=== PATIENT | female | born 1970 | race Caucasian/White ===

== ENCOUNTER 2019-12-25 11:13 | Emergency (ER) | payer MEDICAID ==
[~2019-12-25] VITALS: Ht 154.9 cm; Wt 78.0 kg
[~2019-12-25 11:13] MED LIST: ESOM20CA PO; TOPA25 PO
[2019-12-25 11:19] VITALS: BP 130/106
[2019-12-25] MEDS ORDERED: LIDOCAINE 1%/EPI 1:100,000 10 ML VIAL IJ ONE (12:30)
[2019-12-25] MEDS ORDERED: BACITRACIN ZINC OINT UDPKT TOP ONE (12:30)
[2019-12-25] MEDS ORDERED: CEFTRIAXONE 1 G PREMIX 50 ML IV ONE (12:30)
[2019-12-25] MEDS ORDERED: ACETAMINOPHEN 325MG TABLET PO ONE (13:00)
[2019-12-25 13:04] LABS: BASOPHILS % 1.2 % (0.0-2.0); EOSINOPHILS % 1.7 % (0.0-5.0); HEMOGLOBIN. 12.7 g/dL (12.0-16.0); LYMPHOCYTES % 12.9 % (20.0-50.0); MEAN CORPUSCULAR HEMOGLOBIN 29.4 pg (28.0-32.0); MEAN CORPUSCULAR VOLUME 88.2 fL (81.0-99.0); MEAN PLATELET VOLUME 8.2 fl (7.4-10.4); MONOCYTES % 8.2 % (2.0-8.0); PLATELET 367 x1000/uL (130-400); RED BLOOD CELL COUNT 4.31 mill/uL (4.2-5.4); RED CELL DISTRIBUTION WIDTH 15.2 % (11.6-14.6)
[2019-12-25 13:14] LABS: CHLORIDE 101 mEq/L (98-107)
== END 2019-12-25 13:44 | disposition home or self-care (01) ==
LOC: ER 11:13
DX: L02.413 Cutaneous abscess of right upper limb (principal); L03.113 Cellulitis of right upper limb; F32.9 Major depressive disorder, single episode, unspecified; Z98.51 Tubal ligation status
CPT/HCPCS: 36415; 80053; 85025; 96365; 99284; A4217; J0696; J3490; Z7610

== ENCOUNTER 2019-12-29 08:15 | Emergency (ER) | payer MEDICAID ==
[~2019-12-29] VITALS: Ht 154.9 cm; Wt 78.0 kg
[2019-12-29 08:25] VITALS: BP 120/64
== END 2019-12-29 09:15 | disposition home or self-care (01) ==
LOC: ER 08:15
DX: Z48.00 Encounter for change or removal of nonsurgical wound dressing (principal); L03.113 Cellulitis of right upper limb
CPT/HCPCS: 99282

== ENCOUNTER 2020-12-21 16:45 | Emergency (ER) | payer MEDICAID ==
[~2020-12-21] VITALS: Ht 165.1 cm; Wt 91.0 kg
[2020-12-21 16:48] VITALS: BP 134/87
[2020-12-21 18:24] LABS: BASOPHILS % 0.6 % (0.0-2.0); EOSINOPHILS % 3.1 % (0.0-5.0); HEMATOCRIT. 39.7 % (36.0-48.0); HEMOGLOBIN. 12.9 g/dL (12.0-16.0); LYMPHOCYTES % 24.1 % (20.0-50.0); MEAN CORPUSCULAR HEMOGLOBIN 28.5 pg (28.0-32.0); MEAN CORPUSCULAR VOLUME 87.7 fL (81.0-99.0); MEAN PLATELET VOLUME 8.4 fl (7.4-10.4); MONOCYTES % 8.5 % (2.0-8.0); NEUTROPHILS % 63.7 % (40.0-76.0); PLATELET 415 x1000/uL (130-400); RED BLOOD CELL COUNT 4.52 mill/uL (4.2-5.4); RED CELL DISTRIBUTION WIDTH 14.9 % (11.6-14.6)
[2020-12-21 18:29] LABS: CHLORIDE 104 mEq/L (98-107)
== END 2020-12-21 19:50 | disposition left against medical advice (07) ==
LOC: ER 16:45
DX: R10.9 Unspecified abdominal pain (principal); R06.02 Shortness of breath
CPT/HCPCS: 36415; 80053; 85025; 93005; 99284

== ENCOUNTER 2023-04-01 08:16 | Emergency (ER) | payer MEDICAID, OTHER ==
[~2023-04-01] VITALS: Ht 154.9 cm; Wt 95.0 kg
[2023-04-01 08:24] VITALS: BP 133/79; PULSE 93; RESP 18; TEMP 98.9; O2SAT 99
[2023-04-01 09:11] LABS: BASOPHILS % 0.3 % (0.0-2.0); EOSINOPHILS % 1.6 % (0.0-5.0); HEMATOCRIT. 36.6 % (36.0-48.0); HEMOGLOBIN. 12.2 g/dL (12.0-16.0); LYMPHOCYTES % 23.6 % (20.0-50.0); MEAN CORPUSCULAR HEMOGLOBIN 27.6 pg (28.0-32.0); MEAN CORPUSCULAR HGB CONC 33.4 g/dL (31.0-37.0); MEAN CORPUSCULAR VOLUME 82.4 fL (81.0-99.0); MEAN PLATELET VOLUME 8.4 fl (7.4-10.4); MONOCYTES % 6.9 % (2.0-8.0); NEUTROPHILS % 67.6 % (40.0-76.0); PLATELET 387 x1000/uL (130-400); RED BLOOD CELL COUNT 4.44 mill/uL (4.2-5.4); RED CELL DISTRIBUTION WIDTH 13.6 % (11.6-14.6); WHITE BLOOD COUNT 8.8 x1000/uL (4.5-11.0)
[2023-04-01 09:25] LABS: ALANINE AMINOTRANSFERASE 11 IU/L (10-49); ALBUMIN 4.5 g/dL (3.2-4.8); ASPARTATE AMINOTRANSFERASE 17 IU/L (<34); BILIRUBIN TOTAL 0.3 mg/dL (0.1-1.0); CALCIUM 9.1 mg/dL (8.7-10.4); CARBON DIOXIDE 29 mEq/L (21-32); CHLORIDE 105 mEq/L (98-107); CREATININE 0.7 mg/dL (0.6-1.0); GLUCOSE 90 mg/dL (70-105); POTASSIUM 4.2 mEq/L (3.5-5.1); SODIUM 138 mEq/L (136-145); UREA NITROGEN BLOOD 12 mg/dL (9-23)
== END 2023-04-01 17:50 | disposition left against medical advice (07) ==
LOC: ER 08:16
DX: R10.9 Unspecified abdominal pain (principal); Z53.21 Procedure and treatment not carried out due to patient leaving prior to being seen by health care provider
CPT/HCPCS: 36415; 80053; 85025; 99281

== ENCOUNTER 2024-01-18 09:16 | Emergency (ER) | payer OTHER ==
[~2024-01-18] VITALS: Ht 154.9 cm; Wt 95.0 kg
[2024-01-18 09:18] VITALS: O2SAT 97
[2024-01-18 09:24] VITALS: BP 138/94; PULSE 101; RESP 15; TEMP 98.7; O2SAT 96
[2024-01-18] MEDS ORDERED: AMOX1TAB16 MT (09:56)
[2024-01-18] MEDS ORDERED: TRAM50TA3 MT (09:56)
[2024-01-18] MEDS: AMOXICILLIN/POTASSIUM CLAVULANATE 875/125MG TAB PO ONE (10:05)
== END 2024-01-18 10:20 | disposition home or self-care (01) ==
LOC: ER 09:16
DX: L03.211 Cellulitis of face (principal)
CPT/HCPCS: 99283